=== PATIENT | male | born 1960 | race Caucasian/White ===

== ENCOUNTER 2020-01-03 09:04 | Inpatient (IN) ==
--- NOTE | 2020-01-03 11:08 | PROVIDER DOCUMENTATION ---
This chart was entered by Shae Regalado Scribe, acting as scribe for Luciana Allison MD. [id number] Abuse/Overdose - General Chief Complaint: Alcohol Withdrawal Stated Complaint: WITHDRAWAL, CANCER PT Time Seen by Provider: 01/03/20 09:33 Source: patient Allergies/Adverse Reactions: Allergies Allergy/AdvReac Type Severity Reaction Status Date / Time erythromycin base Allergy Mild SWELLING Verified 01/03/20 10:21 Penicillins Allergy Mild SWELLING Verified 01/03/20 10:21 Home Medications: Home Medication List Medication Instructions Recorded Confirmed Last Taken Type Famotidine [Pepcid] 20 mg PO BID #10 tab 01/03/20 01/03/20 Unknown Rx - History of Present Illness-Drug/Alcohol Nature of Presenting Problem: Patient is a 59 year old male who presents with request for detox. States he is an alcoholic. Reports he drinks a 12 pack of beer a day with 1 gallon of wine or a bottle of vodka. Does not report SI or HI. He states his last drink was 2 days ago. This episode of drinking or use began:: unsure Severity: reports: mild Any injuries associated with this episode of intoxication?: No Similar Symptoms Previously?: Yes Recently seen or treated by another doctor?: Yes - Substance Abuse Substance Use: reports: alcohol - Alcohol Abuse Last Drink?: 08:00 (yesterday) Type and amount of last drink?: beer, wine and vodka Usually drinks:: daily Review of Systems - Adult - REVIEW OF SYSTEMS - ADULT Constitutional: reports: no symptoms reported Eyes: reports: no symptoms reported Ears, Nose, Mouth & Throat: reports: no symptoms reported Cardiovascular: reports: no symptoms reported Respiratory: reports: no symptoms reported Gastrointestinal: reports: no symptoms reported Genitourinary: reports: no symptoms reported Musculoskeletal: reports: no symptoms reported Integumentary: reports: no symptoms reported Neurological: reports: no symptoms reported Psychiatric: reports: no symptoms reported Endocrine: reports: no symptoms reported Hematologic/Lymphatic: reports: no symptoms reported Allergic/Immunologic: reports: no symptoms reported All Other Systems: Reviewed and Negative Past History - Adult - PAST MEDICAL HISTORY-ADULT Review of Records: reports: Old Records Reviewed, Nursing Assessment Review, Medications Reviewed, Social history reviewed & non-contributory. Major Childhood Illnesses: reports: denies history Cardiovascular: reports: HTN Respiratory: reports: denies history Gastrointestinal: reports: denies history Obstetrical/Gynecological: reports: denies history Genitourinary: reports: denies history Musculoskeletal: reports: denies history Neurological: reports: denies history Psychiatric: reports: denies history Endocrine/Immune: reports: Diabetes Other Conditions: reports: denies history - PRIOR SURGERIES/PROCEDURES Surgical/Procedure History: reports: reviewed, not pertinent, bowel surgery - IMMUNIZATION STATUS Childhood Immunizations: See Nurse Assessment Flu Vaccine: See Nurse Assessment - FAMILY HISTORY Family History: reviewed, not pertinent - SOCIAL HISTORY Smoking: denies Substance Use: alcohol Alcohol Use Frequency: every day Physical Exam-General - PHYSICAL EXAM-ADULT Initial Vital Signs Reviewed: Yes - CONSTITUTIONAL General Appearance: alert, no apparent distress - HEAD, EARS, NOSE, MOUTH & THROAT HENMT: normocephalic/atraumatic, moist mucous membranes - NECK Neck: supple, normal inspection - RESPIRATORY Respiratory: lungs clear, normal breath sounds, no respiratory distress, no accessory muscle use - CARDIOVASCULAR Cardiovascular: normal peripheral pulses, regular rate, rhythm, no murmur - GASTROINTESTINAL (ABDOMEN) Abdominal Exam: non tender, soft, other (colostomy in place) - MUSCULOSKELETAL Back Exam: no CVA tenderness, no vertebral tenderness Extremity: normal gait, normal inspection - SKIN Integumentary: normal color, normal turgor, warm/dry - NEUROLOGIC Neurologic: grossly normal - PSYCHIATRIC Psych/Mental Status: normal mood/affect, normal thought content, normal thought process, oriented x 3 Progress - PLAN OF CARE/RESULTS Progress/Plan/Lab Results: Vital Signs - 8 hr 01/03/20 09:33 Temperature 97.8 F Pulse Rate 104 H Respiratory Rate 18 Blood Pressure 134/87 O2 Sat by Pulse Oximetry 96 1049 - jackie Pack, called [facility] in [place] and [place] and they dont have a program for ETOH detox and rehab. Patient was seen at [facility] yesterday and transferred via EMS to [facility] for detox. Patient stayed in the ER until being discharged this morning and arrived to [place] via POV. Patient was accepted to the [facility]. Admitted upstairs. Orders placed per detox team. Departure - Departure Date of Disposition Decision: 01/03/20 Time of Disposition Decision: 14:02 DIAGNOSIS: Alcoholism, chronic Disposition: ADMITTED INPATIENT 09 Certified Medical Emergency: Emergent Condition: Stable - Critical Care Note This patient required my direct & personal management of CC.: No Attestation - Physician/ SOPHIA Attestation Patient care was provided by Advanced Practice Provider:: No The physician spent face to face time with patient:: Yes Advanced Practice Provider documentation review:: Supervising physician onsite and consulted in the evaluation and care of this patient. The physician did have a face to face encounter with the patient. This chart was documented by the indicated scribe, (Shae Regalado Scribe) and accurately reflects the services I performed and decisions made by me, Luciana Allison MD, as attested by the provider's signature.
[2020-01-03] MEDS ORDERED: ZOFRAN IM PRN (14:36)
[2020-01-03] MEDS ORDERED: SEROQUEL PO PRN (14:36)
[2020-01-03] MEDS ORDERED: NICODERM PATCH TD PRN (14:36)
[2020-01-03] MEDS ORDERED: DESYREL PO PRN (14:36)
[2020-01-03] MEDS ORDERED: D5W 1,000 ML IV PRN (14:36)
[2020-01-03] MEDS ORDERED: MOTRIN PO PRN (14:36)
[2020-01-03] MEDS ORDERED: TYLENOL PO PRN (14:36)
[2020-01-03] MEDS ORDERED: NICOTINE GUM BUCCAL PRN (14:36)
[2020-01-03] MEDS ORDERED: TUBERSOL ID ONE (14:36)
[2020-01-03] MEDS ORDERED: ZOFRAN IV PRN (14:36)
[2020-01-03] MEDS ORDERED: SENOKOT PO PRN (14:36)
[2020-01-03] MEDS ORDERED: DULCOLAX PR PRN (14:36)
[2020-01-03] MEDS ORDERED: ZOFRAN ODT PO PRN (14:36)
[2020-01-03] MEDS ORDERED: MAALOX PLUS LIQUID PO PRN (14:36)
[2020-01-03] MEDS ORDERED: PHENOBARBITAL IV PRN (14:36)
[2020-01-03] MEDS ORDERED: IMODIUM PO PRN ×2 (14:36)
[2020-01-03] MEDS ORDERED: BENTYL PO PRN (15:08)
[2020-01-03] MEDS ORDERED: ATARAX PO PRN (15:08)
[2020-01-03] MEDS ORDERED: ROBAXIN PO PRN (15:08)
[2020-01-03] MEDS ORDERED: SALINE LOCK IV FLUID XX ONE (15:08)
[2020-01-03] MEDS ORDERED: M.V.I.-12 10 ML, FOLIC ACID 1 MG, MAGNESIUM SULFATE 1 GM, THIAMINE 100 MG in NS 1,000 ML IV ONE (15:08)
[2020-01-03 15:09] LABS: HEMATOCRIT 36.2 % (42.0-52.0); HEMOGLOBIN 11.4 g/dL (14.0-18.0); MCH 28.4 PG (27-31); MCHC 31.5 g/dL (33-37); RBC 4.02 XMIL (4.7-6.1); RDW 14.3 % (11.5-14.5); WBC 8.85 X1000 (4.8-10.8)
[2020-01-03 15:29] LABS: AGAP 14; ALBUMIN 3.2 g/dL (3.5-5.0); ALKALINE PHOSPHATASE 106 U/L (32-122); AMYLASE 46 U/L (20-200); BUN 8 mg/dL (8-22); CALCIUM 8.9 mg/dL (8.8-10.2); CHLORIDE 101 mmol/L (98-107); COSMO 273; CREATININE 0.5 mg/dL (0.7-1.2); ESTIMATED GFR > 60; GLUCOSE 109 mg/dL (70-104); GOT 12 U/L (10-34); GPT 9 U/L (10-44); LIPASE 27 U/L (13-60); POTASSIUM 3.7 mmol/L (3.5-5.1); SODIUM 137 mmol/L (136-145); TCO2 23 mmol/L (25-35); TOTAL PROTEIN 6.8 g/dL (6.3-8.3)
[2020-01-03 15:32] LABS: INR 1.03
[2020-01-03] MEDS: LIBRIUM PO SCH ×2 (18:18→21:10)
[2020-01-03 20:44] LABS: URINE SOURCE VOIDED
[2020-01-03 20:47] LABS: BILIRUBIN URINE NEGATIVE (NEGATIVE); BLOOD URINE LARGE (NEGATIVE); COLOR ORANGE; GLUCOSE URINE NEGATIVE (NEGATIVE); KETONE URINE NEGATIVE (NEGATIVE); LEUKOCYTES URINE LARGE (NEGATIVE); NITRITE URINE POSITIVE (NEGATIVE); PROTEIN URINE 200 mg/dL (NEGATIVE); SP GRAVITY URINE 1.015; TURBIDITY URINE HAZY (CLEAR); UROBILINOGEN URINE NORMAL (NORMAL)
[2020-01-03 20:49] LABS: UR EPITHELIAL CELLS <10 /HPF (<10); URINE BACTERIA 2+ /HPF; URINE RBC TNTC /HPF (<10); URINE WBC TNTC /HPF (<10)
[2020-01-03 20:55] LABS: UR AMPHETAMINES QUAL NONE DETECTED (NONE DETECT); UR BARBITUATES QUAL NONE DETECTED (NONE DETECT); UR BENZODIAZEPIN QUAL PRESUMPTIVE POSITIVE (NONE DETECT); UR CANNABINOIDS QUAL NONE DETECTED (NONE DETECT); UR COCAINE QUAL NONE DETECTED (NONE DETECT); UR METHADONE QUAL NONE DETECTED (NONE DETECT); UR METHAMPHETAMINE QUAL NONE DETECTED (NONE DETECT); UR OPIATES QUAL NONE DETECTED (NONE DETECT); UR OXYCODONE QUAL NONE DETECTED (NONE DETECT); UR PCP QUAL NONE DETECTED (NONE DETECT); UR PROPOXYPHENE QUAL NONE DETECTED (NONE DETECT); UR TCA QUAL NONE DETECTED (NONE DETECT)
[2020-01-04] MEDS: LIBRIUM PO SCH ×4 (03:51→22:40)
[2020-01-04] MEDS: PROTONIX PO SCH (06:02)
[2020-01-04] MEDS: VITAMIN B-1 PO SCH (09:48)
[2020-01-04] MEDS: THERA M PLUS PO SCH (09:48)
[2020-01-04] MEDS: FOLIC ACID PO SCH (09:48)
[2020-01-04] MEDS: LEVAQUIN 500 MG/D5W 500 MG/100 ML IVPB IV SCH (22:41)
--- NOTE | 2020-01-04 22:54 | PROGRESS NOTE ---
DATE: 01/04/2020 SUBJECTIVE: Patient notes overall he is starting to feel better, still having some muscle aches but these are improving. Denies any tremors. OBJECTIVE: Vital Signs: Reviewed. Temp 97 degrees, pulse 97, respiratory rate 18, BP 122/76. General: Patient is awake, pleasant. No current distress. HEENT: Normocephalic. Neck: Supple. Cardiovascular: Regular rate. Chest: Clear. Abdomen: Soft, nondistended. Extremities: Moves all extremities. Neurologic: No changes. ASSESSMENT: 1. Nausea and vomiting. 2. Abdominal pain. 3. Myalgias. 4. Paresthesias. 5. Paroxysmal sweating. 6. Alcohol abuse, withdrawal and stabilization. PLAN: We are going to continue patient in the hospital. Continue Librium. Continue counseling and will follow. cc: Nicola Daugherty MD
[2020-01-05] MEDS: LIBRIUM PO SCH ×5 (03:47→16:21)
[2020-01-05] MEDS: THERA M PLUS PO SCH (10:08)
[2020-01-05] MEDS: FOLIC ACID PO SCH (10:09)
[2020-01-05] MEDS: VITAMIN B-1 PO SCH (10:09)
[2020-01-05] MEDS: PROTONIX PO SCH (10:11)
--- NOTE | 2020-01-05 22:15 | PROGRESS NOTE ---
DATE: 01/05/2020 SUBJECTIVE: Patient notes that he had a couple of accidents with his ostomy bag. Denies any fevers, chills. Denies any dysuria. PHYSICAL EXAMINATION: Vital Signs: Reviewed. Temperature 97 degrees, pulse 97, respiratory rate 18, BP 122/76. General: Patient is pleasant, currently in no distress. HEENT: Normocephalic. Neck: Supple. Cardiovascular: Regular rate. Chest: Clear. Abdomen: Soft. Extremities: Moves all extremities. ASSESSMENT: 1. Gram-positive cocci urinary tract infection currently on Levaquin. 2. Nausea and vomiting. 3. Abdominal pain. 4. Myalgias. 5. Paresthesias. 6. Paroxysmal sweating. 7. Alcohol abuse, withdrawal and stabilization. PLAN: We are going to continue Librium taper. Continue counseling. Continue antibiotics for urine culture. We will follow sensitivities. Further orders as needed. cc: Nicola Daugherty MD
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
[2020-01-05] MEDS: LEVAQUIN 500 MG/D5W 500 MG/100 ML IVPB IV SCH (23:55)
[2020-01-06] MEDS: PROTONIX PO SCH ×2 (05:51→06:07)
[2020-01-06] MEDS ORDERED: LIBRIUM PO SCH (09:00)
[2020-01-06] MEDS: THERA M PLUS PO SCH (09:36)
[2020-01-06] MEDS: FOLIC ACID PO SCH (09:36)
[2020-01-06] MEDS: VITAMIN B-1 PO SCH (09:36)
[2020-01-06 13:54] VITALS: BP 115/74
--- NOTE | 2020-01-07 05:45 | PROGRESS NOTE ---
DATE: 01/06/2020 SUBJECTIVE: Patient notes that he is feeling okay, still having lots of difficulties with his ostomy site. PHYSICAL EXAMINATION: Vital Signs: Reviewed. Temperature 97 degrees, pulse 92, respiratory rate 18, BP 106/69. General: Patient is awake, alert. HEENT: Normocephalic. Neck: Supple. Cardiovascular: Regular rate. Chest: Clear. Abdomen: Soft. Extremities: Moves all extremities. Neurologic: No changes. ASSESSMENT: 1. Gram-positive cocci urinary tract infection. 2. Nausea, vomiting. 3. Abdominal pain. 4. Myalgias. 5. Paresthesias. 6. Paroxysmal sweating. 7. Polysubstance use and abuse. PLAN: We are going to continue patient in the hospital. Continue to wean Librium. Continue counseling with his ostomy. Further orders as needed. cc: Nicola Daugherty MD MTDD
--- NOTE | 2020-01-07 13:48 | PROGRESS NOTE ---
DATE: 01/07/2020 SUBJECTIVE: No complaints. PHYSICAL EXAMINATION: Vital Signs: Reviewed. General: He is awake, alert. He is in no distress. Physical exam is unchanged. ASSESSMENT: 1. Nausea and vomiting. 2. Abdominal pain. 3. Myalgias. 4. Paresthesias. 5. Paroxysmal sweating. 6. Diabetes. PLAN: We are going to continue patient in the hospital, continue to follow. Further orders as needed. cc: Nicola Daugherty MD
--- NOTE | 2020-01-08 20:50 | DISCHARGE SUMMARY ---
ADMISSION DATE: 01/03/2020 DISCHARGE DATE: 01/06/2020 DISCHARGE DIAGNOSES: 1. Nausea and vomiting. 2. Abdominal pain. 3. Myalgias. 4. Paresthesias. 5. Paroxysmal sweating. 6. Hypertension. 7. Diabetes. 8. Alcohol abuse, withdrawal and stabilization. CONSULTATIONS: None. PROCEDURES: None. BRIEF HOSPITAL COURSE: The patient is a 59-year-old male who presented to the hospital and treated in usual fashion. Patient on high-dose Librium taper. His hypertension and diabetes was controlled while he was in the hospital. Patient remained in the hospital while we were searching for further inpatient treatment. However, he patient decided that he was no longer going to stay in the hospital. Thankfully, he became completely stabilized from a withdrawal standpoint and he discharged on his own without any further allowance of education or discharge planning. cc: Nicola Daugherty MD
== END 2020-01-06 15:16 | disposition home or self-care (01) | DRG 897 ==
LOC: P.ED 09:04 → P.MEDSURG 13:42
PROVIDERS: ATTEND Family Medicine